=== PATIENT | male | born 1980 ===

== ENCOUNTER 2017-07-08 13:31 | Emergency (ER) | payer MEDICAID ==
--- NOTE | 2017-07-08 14:42 | ED PDOC ---
Lower Extremity Pain/Injury Time Seen by Provider: 07/08/17 13:50 Chief Complaint (Nursing): Lower Extremity Problem/Injury Chief Complaint (Provider): Right Ankle Pain History Per: Patient History/Exam Limitations: no limitations Onset/Duration Of Symptoms: Days Current Symptoms Are (Timing): Still Present Additional Complaint(s): 37 year old male presents to the emergency department complaining of right ankle pain. The patient reports that he has had similar pains in the past which started spontaneously. Denies trauma or recent injury. Patint took motring for pain. Past Medical History Reviewed: Historical Data, Nursing Documentation, Vital Signs Vital Signs: Last Vital Signs Temp 98.2 F 07/08/17 13:47 Pulse 94 H 07/08/17 13:47 Resp 20 07/08/17 13:47 BP 134/86 07/08/17 13:47 Pulse Ox 98 07/08/17 13:47 - Medical History PMH: HTN, Pneumothorax - Surgical History Surgical History: No Surg Hx - Family History Family History: States: Unknown Family Hx - Social History Current smoker - smoking cessation education provided: Yes (Heavy Smoker > 10 Cigarettes Daily) Alcohol: Social Drugs: Denies - Home Medications Home Medications: Ambulatory Orders Medication Instructions Recorded Naproxen [Naprosyn] 500 mg PO BID PRN #14 tab 07/08/17 - Allergies Allergies/Adverse Reactions: Allergies Allergy/AdvReac Type Severity Reaction Status Date / Time Penicillins Allergy RASH Verified 07/08/17 13:47 Review of Systems Musculoskeletal: Positive for: Other (right ankle pain) Physical Exam - Reviewed Nursing Documentation Reviewed: Yes Vital Signs Reviewed: Yes - Physical Exam Appears: Positive for: No Acute Distress Head Exam: Positive for: NORMAL INSPECTION Extremity: Positive for: Tenderness (No tenderness to right ankle), Other (No warmth, no erythema no break in skin integrity, no lesions to ). Negative for: Calf Tenderness, Deformity, Swelling (no swelling to right ankle) - ECG O2 Sat by Pulse Oximetry: 98 (RA) Pulse Ox Interpretation: Normal Medical Decision Making Medical Decision Makin Initial Impression 37 year old mal presenting with right ankle ain Initial Plan: * RAD Right Ankle 3 views R ankle x-ray: enchondroma on distal tibia; osteoporosis; no fx Pt. informed of results and advised to f/u with orthopedist or [employer] for further evaluation and testing. Verbalized understanding to PA and states he will f/u as instructed. Documented by Saba song acting as a scribe for David Hanson PA-C. All medical record entries made by the Scribe were at my direction and personally dictated by me. I have reviewed the chart and agree that the record accurately reflects my personal performance of the history, physical exam, medical decision making, and the department course for this patient. I have also personally directed, reviewed, and agree with the discharge instructions and disposition. Disposition - Clinical Impression Clinical Impression: Enchondroma, Osteoporosis - Patient ED Disposition Is Patient to be Admitted: No - Disposition Referrals: Podiatry Clinic [Outside] Andre Beck MD [Primary Care Provider] - Deondre Storm MD [Staff Provider] - Disposition: Routine/Home Disposition Time: 16:15 Condition: STABLE Additional Instructions: Follow up podiatry clinic or Dr. Dhruv Mancera (orthopedist) for further evaluation. Return to ED immediately if symptoms worsen. Prescriptions: Naproxen [Naprosyn] 500 mg PO BID PRN #14 tab PRN Reason: Pain Instructions: Osteoporosis (DC), Joint Pain Forms: [employer] (Bel[place]ian)
--- NOTE | 2017-07-08 15:48 | RAD ---
PROCEDURE: Right ankle Radiographs. HISTORY: COMPARISON: None. FINDINGS: BONES: Normal. No fracture. JOINTS: Normal. No dislocation. SOFT TISSUES: Normal. OTHER FINDINGS: Enchondroma in the distal tibia. IMPRESSION: No fracture.
[2017-07-08 16:34] VITALS: BP 124/72; PULSE 84; RESP 18; TEMP 98.6
[2017-07-08 21:53] VITALS: O2SAT 98
== END 2017-07-08 16:35 | disposition home or self-care (01) ==
LOC: H.ER 13:31
DX: D16.10 Benign neoplasm of short bones of unspecified upper limb (principal); M81.0 Age-related osteoporosis without current pathological fracture; I10 Essential (primary) hypertension; Z88.0 Allergy status to penicillin

== ENCOUNTER 2018-03-25 17:58 | Emergency (ER) | payer MEDICAID ==
[2018-03-25 18:14] VITALS: TEMP 98.6
--- NOTE | 2018-03-25 18:49 | ED PDOC ---
HPI: General Adult Time Seen by Provider: 03/25/18 18:22 Chief Complaint (Nursing): GI Problem Chief Complaint (Provider): GI Problem History Per: Patient History/Exam Limitations: no limitations Onset/Duration Of Symptoms: Days (x1 week) Additional Complaint(s): 37 y/o male with history of gastritis and hypertension, presents to the ED stating he has been "feeling lousy" for the past week. Patient reports feeling nausea, light headedness, loss of appetie. He notes he has had similar symptoms in the psat. Patient states he doctor has taken him of Megastrol x2 weeks ago. Since then he has seen his PMD twice who eventually advised him to come to the ED. Past Medical History Reviewed: Historical Data, Nursing Documentation, Vital Signs Vital Signs: Last Vital Signs Temp 98.6 F 03/25/18 18:11 Pulse 118 H 03/25/18 18:11 Resp 18 03/25/18 18:11 BP 128/83 03/25/18 18:11 Pulse Ox 99 03/25/18 18:11 - Medical History PMH: Gastritis, HTN, Pneumothorax - Surgical History Surgical History: No Surg Hx - Family History Family History: States: Unknown Family Hx - Home Medications Home Medications: Ambulatory Orders Medication Instructions Recorded Naproxen [Naprosyn] 500 mg PO BID PRN #14 tab 07/08/17 - Allergies Allergies/Adverse Reactions: Allergies Allergy/AdvReac Type Severity Reaction Status Date / Time Penicillins Allergy RASH Verified 07/08/17 13:47 Review of Systems ROS Statement: Except As Marked, All Systems Reviewed And Found Negative Constitutional: Positive for: Weakness Gastrointestinal: Positive for: Nausea Neurological: Positive for: Dizziness (light headed) Physical Exam - Reviewed Nursing Documentation Reviewed: Yes Vital Signs Reviewed: Yes - Physical Exam Appears: Positive for: Well, Non-toxic, No Acute Distress Head Exam: Positive for: ATRAUMATIC, NORMAL INSPECTION, NORMOCEPHALIC Skin: Positive for: Normal Color, Warm, DRY Eye Exam: Positive for: EOMI, Normal appearance, PERRL ENT: Positive for: Normal ENT Inspection Neck: Positive for: Normal, Painless ROM Cardiovascular/Chest: Positive for: Regular Rate, Rhythm. Negative for: Murmur Respiratory: Positive for: Normal Breath Sounds. Negative for: Respiratory Distress Gastrointestinal/Abdominal: Positive for: Normal Exam, Soft. Negative for: Tenderness Back: Positive for: Normal Inspection Extremity: Positive for: Normal ROM. Negative for: Pedal Edema, Deformity Neurologic/Psych: Positive for: Alert, Oriented. Negative for: Motor/Sensory Deficits - Laboratory Results Result Diagrams: 03/25/18 19:18 03/25/18 19:18 - ECG O2 Sat by Pulse Oximetry: 99 (RA) Pulse Ox Interpretation: Normal Medical Decision Making Medical Decision Making: Time: 18:22 Initial Impression: nausea and light headedness Initial Plan: Scribe Attestation: Documented by Crow Uriostegui acting as a scribe for Eli Kong MD. Provider Scribe Attestation: All medical record entries made by the Scribe were at my direction and personally dictated by me. I have reviewed the chart and agree that the record accurately reflects my personal performance of the history, physical exam, medical decision making, and the department course for this patient. I have also personally directed, reviewed, and agree with the discharge instructions and disposition. Disposition - Clinical Impression Clinical Impression: Loss of appetite - Disposition Disposition: Routine/Home Disposition Time: 21:23 Condition: STABLE Additional Instructions: FOLLOW-UP WITH PMD WITHIN @ DAYS FOR REEVALUATION. Instructions: Managing Loss of Appetite and Weight Loss With Cancer, Minimize Weight Loss Forms: [employer] (Mauritian)
[2018-03-25] MEDS ORDERED: Sodium Chloride 0.9% 1,000 ML IV STA (19:06)
[2018-03-25 19:37] LABS: BASO % 0.4 % (0.0-2.0); EOS # 0.2 K/uL (0.0-0.7); EOS % 1.7 % (0.0-4.0); HEMOGLOBIN 13.9 g/dL (12.0-18.0); LYMPH # 2.2 K/uL (1.0-4.3); LYMPH % 22.8 % (20.0-40.0); MEAN CELL VOLUME 89.2 fl (80.0-94.0); MEAN CORPUSCULAR HEMOGLOBIN 30.1 pg (27.0-31.0); MEAN CORPUSCULAR HGB CONC 33.7 g/dL (33.0-37.0); MEAN PLATELET VOLUME 10.6 fl (7.2-11.7); MONO # 0.4 K/uL (0.0-0.8); MONO % 4.2 % (0.0-10.0); NEUT % 70.9 % (50.0-75.0); RBC 4.61 Mil/uL (4.40-5.90); RED CELL DISTRIBUTION WIDTH 12.8 % (11.5-14.5); WHITE BLOOD COUNT 9.9 K/uL (4.8-10.8)
[2018-03-25 19:47] LABS: SQUAMOUS EPITHIAL 1 /hpf (0-5); URINE BACTERIA RARE (<OCC); URINE BILIRUBIN NEGATIVE (NEGATIVE); URINE BLOOD NEGATIVE (NEGATIVE); URINE CLARITY SLIGHTY-CLOUDY (Clear); URINE GLUCOSE (UA) NEG (NEGATIVE); URINE LEUKOCYTE ESTERASE NEG Leu/uL (Negative); URINE PROTEIN NEGATIVE (NEGATIVE)
[2018-03-25 19:48] LABS: ALB/GLOB RATIO 1.3 (1.0-2.1); ALBUMIN 4.1 g/dL (3.5-5.0); ALT/SGPT 49 U/L (21-72); AST/SGOT 39 U/L (17-59); BLOOD UREA NITROGEN 6 mg/dl (9-20); CALCIUM 9.2 mg/dL (8.4-10.2); GFR NON-AFRICAN AMERICAN > 60; URINE COLOR YELLOW (YELLOW)
[2018-03-25] MEDS ORDERED: Potassium Chloride 20 mEq ER Tab PO STA (20:10)
[2018-03-25] MEDS ORDERED: Potassium Chloride 20 mEq ER Tab PO ONE (21:20)
[2018-03-25 21:47] VITALS: BP 124/73; PULSE 84; RESP 16
[2018-03-30 09:28] VITALS: O2SAT 99
== END 2018-03-25 21:46 | disposition home or self-care (01) ==
LOC: H.ER 17:58
DX: R63.0 Anorexia (principal); I10 Essential (primary) hypertension; Z88.0 Allergy status to penicillin
CPT/HCPCS: 80053; 81003; 85025; 96374; 99285; J2405; J7030